=== PATIENT | male | born 1965 | race Caucasian/White ===

== ENCOUNTER 2016-03-04 00:47 | Inpatient (IN) | payer OTHER ==
[2016-03-04] VITALS (8 sets, daily range): BP systolic 125–148; BP diastolic 81–95; PULSE 72–92; TEMP 36.7–37; O2SAT 95–97; Ht 170.2 cm; Wt 89.1 kg
[~2016-03-04] VITALS: Ht 170.2 cm; Wt 89.1 kg
[2016-03-04] MEDS ORDERED: VNTHFA/IN INH (03:02)
[2016-03-04] MEDS ORDERED: ONDANSETRON INJ 2 MG/ML 2 ML VIAL IV PRN (03:15)
[2016-03-04] MEDS ORDERED: ACETAMINOPHEN 325 MG TAB PO PRN (03:15)
[2016-03-04] MEDS ORDERED: NITROGLYCERIN 0.4 MG SL PER TAB CHARGE SL PRN (03:15)
[2016-03-04] MEDS ORDERED: ZOLPIDEM TARTRATE 5 MG TAB PO PRN (03:15)
[2016-03-04] MEDS ORDERED: INFLUENZA VIRUS QUAD VACCINE 0.5 ML SYR IM. ONE (08:00)
[2016-03-04] MEDS ORDERED: INFLUENZA ADMINISTRATION CHARGE ONE (08:00)
[2016-03-04 08:31] LABS: BASO % 0.5 %; BASO ABS # 0.03 K/uL (0-0.2); COMPLETE YES; EOS % 2.4 %; HEMATOCRIT 45.6 % (42-52); IG% 0.3 %; LYMPH % 29.3 %; LYMPH ABS # 1.85 K/uL (1.2-3.4); MEAN CELL VOLUME 89.2 fL (80-100); MEAN CORPUSCULAR HEMOGLOBIN 32.1 pg (25-34); MEAN PLATELET VOLUME 10.1 fL (7.4-10.4); MONO % 10.4 %; NEUT % 57.1 %; PLATELET COUNT 164 K/uL (130-400); RED BLOOD COUNT 5.11 M/uL (4.7-6.1); WHITE BLOOD COUNT 6.32 K/uL (4.8-10.8)
[2016-03-04] MEDS: ACETAMINOPHEN 325 MG TAB PO PRN ×2 (08:44→20:33)
[2016-03-04 08:53] LABS: BUN/CREATININE RATIO 11.9 (10-20); CALCIUM 8.4 mg/dl (8.5-10.1); CREATININE 0.72 mg/dl (0.60-1.40); MAGNESIUM 2.3 mg/dl (1.8-2.4); POTASSIUM 4.2 mmol/L (3.5-5.1)
[2016-03-04 08:56] LABS: ALB/GLOB RATIO 1.4 (0.9-2); PHOSPHORUS 2.8 mg/dl (2.5-4.9)
[2016-03-04] MEDS ORDERED: LORAZEPAM 2 MG/ML 1 ML VIAL IV PRN (09:15)
[2016-03-04] MEDS ORDERED: LORAZEPAM INJ 2 MG in SYRINGE 1 ML IV PRN (09:15)
--- NOTE | 2016-03-04 12:42 | Progress Note ---
Subjective Date of Service: Mar 04, 2016. Subjective Pt evaluation today including: conversation w/ patient Voiding: no voiding problems Review of Systems Constitutional: No chills, No fever Eyes: + worsening of vision Respiratory: No cough, No shortness of breath, No sputum Cardiac: No chest pain, No edema Abdomen: No diarrhea, No pain, No vomiting Male : No dysuria Objective Vital Signs Date Time Temp Pulse Resp B/P Pulse Ox O2 Delivery O2 Flow Rate FiO2 03/04/16 12:00 96 Room Air 03/04/16 11:09 37.0 75 22 144/92 96 Room Air 03/04/16 08:00 95 Room Air 03/04/16 08:00 36.9 92 22 143/89 95 Room Air 03/04/16 04:00 Room Air 03/04/16 02:29 36.7 82 20 125/81 95 Room Air Physical Exam General Appearance: WD/WN, no apparent distress Eyes: normal inspection, PERRL, EOMI ENT: normal ENT inspection, hearing grossly normal Neck: supple Respiratory/Chest: chest non-tender, lungs clear, normal breath sounds, no respiratory distress, no accessory muscle use Cardiovascular: regular rate, rhythm, no edema, no gallop, no JVD, no murmur Abdomen: normal bowel sounds, non tender, soft, no organomegaly, no pulsatile mass Extremities: normal range of motion, non-tender, normal inspection, no pedal edema, no calf tenderness 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, no motor/sensory deficits, alert, normal mood/affect, oriented x 3 Skin: normal color, warm/dry, no rash Laboratory Results Last 24 Hours Test 03/04/16 06:30 03/04/16 08:19 Hepatitis C Antibody Screen NEG White Blood Count 6.32 K/uL Red Blood Count 5.11 M/uL Hemoglobin 16.4 g/dL Hematocrit 45.6 % Mean Corpuscular Volume 89.2 fL Mean Corpuscular Hemoglobin 32.1 pg Mean Corpuscular Hemoglobin Concent 36.0 g/dl Platelet Count 164 K/uL Mean Platelet Volume 10.1 fL Neutrophils (%) (Auto) 57.1 % Lymphocytes (%) (Auto) 29.3 % Monocytes (%) (Auto) 10.4 % Eosinophils (%) (Auto) 2.4 % Basophils (%) (Auto) 0.5 % Neutrophils # (Auto) 3.61 K/uL Lymphocytes # (Auto) 1.85 K/uL Monocytes # (Auto) 0.66 K/uL Eosinophils # (Auto) 0.15 K/uL Basophils # (Auto) 0.03 K/uL RDW Standard Deviation 44.1 fL RDW Coefficient of Variation 13.5 % Immature Granulocyte % (Auto) 0.3 % Immature Granulocyte # (Auto) 0.02 K/uL Sodium Level 138 mmol/L Potassium Level 4.2 mmol/L Chloride Level 101 mmol/L Carbon Dioxide Level 26 mmol/L Anion Gap 11.0 mmol/L Blood Urea Nitrogen 9 mg/dl Creatinine 0.72 mg/dl Est Creatinine Clear Calc Drug Dose 134.3 ml/min Estimated GFR () 127.0 Estimated GFR (Non- 109.5 BUN/Creatinine Ratio 11.9 Random Glucose 106 mg/dl Calcium Level 8.4 mg/dl Phosphorus Level 2.8 mg/dl Magnesium Level 2.3 mg/dl Total Bilirubin 0.4 mg/dl Aspartate Amino Transf (AST/SGOT) 21 U/L Alanine Aminotransferase (ALT/SGPT) 25 U/L Alkaline Phosphatase 60 U/L Total Protein 6.6 gm/dl Albumin 3.8 gm/dl Globulin 2.8 gm/dl Albumin/Globulin Ratio 1.4 Assessment and Plan 50 years old complained of headache, blurring of vision alcohol dependence Headache Awaiting MRI with contrast CT head from OSH reviewed Blurring of vision , resolved Alcohol dependence CIWA protocol ativan prn withdrawal symptoms DVT prophylaxis
[2016-03-04 13:29] LABS: PARTIAL THROMBOPLASTIN RATIO 1.1; PROTHROMBIN TIME (PATIENT) 10.2 SECONDS (9.0-12.0)
--- NOTE | 2016-03-04 15:01 | DIAGNOSTIC IMAGING REPORT ---
MRI OF THE BRAIN WITHOUT AND WITH IV CONTRAST CLINICAL HISTORY: Transient ischemic attack. COMPARISON STUDY: Head CT March 03, 2016. TECHNIQUE: Utilizing a 1.5 Bharati magnet and dedicated coil, multiplanar, multiecho imaging of the brain was performed pre and postcontrast administration. IV administration of 20 mL of Magnevist contrast was uneventful. FINDINGS: This study is mildly compromised by motion artifact. There are no areas of restricted diffusion. No acute intracranial hemorrhage, midline shift or mass effect is present. Ventricular system is unremarkable. The basilar cisterns are patent. Flow-voids for the major intracranial vessels are present. There are no intracranial masses or areas of pathologic enhancement. A few white matter T2 hyperintense foci suggest mild small vessel disease. The left maxillary sinus is opacified. There is widening of the sinus ostium for the left maxillary sinus. There is mild mucosal thickening of the right maxillary sinus. There is mild mucosal thickening of the ethmoid sinuses. IMPRESSION: 1. No acute intracranial findings. 2. No intracranial masses or pathologic enhancement. 3. Study mildly compromised by motion artifact. 4. Mild suspected small vessel disease. 4. Maxillary sinus disease, as described above. Electronically signed by: Moe Carroll M.D. 03/04/2016 2:59 PM Dictated Date/Time: 03/04/2016 2:52 PM
--- NOTE | 2016-03-04 15:01 | DIAGNOSTIC IMAGING REPORT ---
MR ANGIOGRAM OF THE BRAIN CLINICAL HISTORY: Transient ischemic attack. COMPARISON STUDY: MRI of the brain performed concurrently on 03/04/2016. TECHNIQUE: 3-D [id number] MR angiography of the intracranial circulation is performed. 3-D tumble views are created and assessed. IV contrast was not administered for this examination. FINDINGS: The internal carotid arteries at the skull base are widely patent bilaterally, as are the anterior and middle cerebral arteries. The vertebrobasilar system and posterior cerebral arteries are widely patent. The right vertebral artery is dominant. There is no aneurysm, high-grade stenosis, or focal vessel cutoff seen throughout the intracranial circulation. The brain parenchyma is normal as visualized. Left maxillary sinus disease is observed. IMPRESSION: Unremarkable MR angiogram of the brain. Electronically signed by: Pardeep Joseph M.D. 03/04/2016 2:59 PM Dictated Date/Time: 03/04/2016 2:57 PM
--- NOTE | 2016-03-04 15:14 | DIAGNOSTIC IMAGING REPORT ---
NECK MRA HISTORY: Transient ischemic attack TECHNIQUE: [id number] and gadolinium-enhanced MRA of the neck was performed both before and after the intravenous administration of contrast. All measurements were calculated based on NASCET criteria. 20 cc of intravenous Magnevist was administered COMPARISON STUDY: MRI the brain dated 03/04/2016 FINDINGS: The aortic arch and proximal great vessels are widely patent. There is no significant stenosis, occlusion, or dissection identified within the bilateral common carotid, internal carotid, or vertebral arteries. IMPRESSION: No significant stenosis, occlusion, or dissection identified within the carotid or vertebral arteries. Electronically signed by: Rodrigo Lainez M.D. 03/04/2016 3:12 PM Dictated Date/Time: 03/04/2016 3:10 PM
--- NOTE | 2016-03-04 16:15 | History and Physical ---
History & Physical Date & Time of Service: Mar 04, 2016 at 16:02 Chief Complaint: TIA Primary Care Physician: No Doctor, Assigned History of Present Illness Source: patient Her The patient is a 50-year-old male who presented to [facility] emergency department with frontoparietal headache 1 week and intermittent blurry vision in the left thigh over the past 2 days, along with generalized weakness, shortness of breath and a chronic cough. The patient is a current every day smoker, and has a history of asthma, for which he uses an albuterol HFA when necessary. He had a CT of the head without contrast is negative other than for chronic appearing left maxillary sinusitis, an EKG which showed normal sinus rhythm at [address]-T changes, and laboratories which showed a negative urine drug screen, normal CBC with differential except mildly elevated eosinophils, serum ethanol level 199, and normal chemistry profile, and normal troponin. Because of concern of the ED physician regarding the potential for CVA, the patient was accepted in transfer to [facility]. Upon arrival, patient's symptoms were unchanged. Social History Smoking Status: Current Every Day Smoker Smokeless Tobacco Use: No Alcohol Use: none Drug Use: none Occupational Status: employed Multi-Drug Resistant Organisms History of MDRO: No Allergies Coded Allergies: No Known Allergies (Unverified , 09/15/12) Home Medications Scheduled Albuterol Hfa (Ventolin Hfa), 2 PUFFS INH Q6H Miscellaneous Medications None (Patient States No Home Meds) Review of Systems The patient denies chest pain, palpitations, lower extremity swelling, vision change, hearing change, sore throat, fevers, chills, sweats, weight change, fatigue, nausea, vomiting, abdominal pain, pelvic pain, blood in urine or stool , dysuria, urinary frequency or urgency, memory loss, rash, abnormal bruising or bleeding, imbalance, focal weakness, numbness or tingling in arms or legs, arthralgias or myalgias, back or neck pain, night sweats. The review of systems is otherwise negative other than for that already noted above, and at least 10 systems have been reviewed. Physical Exam Vital Signs Date Time Temp Pulse Resp B/P Pulse Ox O2 Delivery O2 Flow Rate FiO2 03/04/16 15:49 36.9 74 20 148/95 97 Room Air 03/04/16 12:00 96 Room Air 03/04/16 11:09 37.0 75 22 144/92 96 Room Air 03/04/16 08:00 95 Room Air 03/04/16 08:00 36.9 92 22 143/89 95 Room Air 03/04/16 04:00 Room Air 03/04/16 02:29 36.7 82 20 125/81 95 Room Air The patient is awake, alert and oriented 3, appears fatigued, normocephalic and atraumatic, lying in bed and in no acute distress. HEENT--PERRL, EOMI, mucous membranes moist, and oropharynx normal. Neck--supple, no JVD or bruits, thyroid normal, trachea midline, no adenopathy. Heart--normal S1 and S2, no extra beats, no murmurs, rubs or gallops. Lungs--wheezes bilaterally with few scattered rhonchi, no respiratory distress , no accessory muscle use. Abdomen--normal bowel sounds and soft, nontender and nondistended, no hernias or masses, no organomegaly. Extremities--no cyanosis, clubbing or edema. There are good distal pulses b/l. Dermatologic--normal skin turgor, normal color, warm and dry, no abnormal lymph nodes, no rash. Neurologic--cranial nerves II through XII grossly intact, motor and sensory examination normal. Rheumatologic--normal range of motion, nontender, muscles and joints. Psychiatric--normal affect. Diagnostics Laboratory Results Results Past 24 Hours Test 03/04/16 06:30 03/04/16 08:19 03/04/16 12:50 Range/Units Hepatitis C Antibody Screen NEG NEG White Blood Count 6.32 4.8-10.8 K/uL Red Blood Count 5.11 4.7-6.1 M/uL Hemoglobin 16.4 14.0-18.0 g/dL Hematocrit 45.6 42-52 % Mean Corpuscular Volume 89.2 80-100 fL Mean Corpuscular Hemoglobin 32.1 25-34 pg Mean Corpuscular Hemoglobin Concent 36.0 32-36 g/dl Platelet Count 164 130-400 K/uL Mean Platelet Volume 10.1 7.4-10.4 fL Neutrophils (%) (Auto) 57.1 % Lymphocytes (%) (Auto) 29.3 % Monocytes (%) (Auto) 10.4 % Eosinophils (%) (Auto) 2.4 % Basophils (%) (Auto) 0.5 % Neutrophils # (Auto) 3.61 1.4-6.5 K/uL Lymphocytes # (Auto) 1.85 1.2-3.4 K/uL Monocytes # (Auto) 0.66 0.11-0.59 K/uL Eosinophils # (Auto) 0.15 0-0.5 K/uL Basophils # (Auto) 0.03 0-0.2 K/uL RDW Standard Deviation 44.1 36.4-46.3 fL RDW Coefficient of Variation 13.5 11.5-14.5 % Immature Granulocyte % (Auto) 0.3 % Immature Granulocyte # (Auto) 0.02 0.00-0.02 K/uL Sodium Level 138 136-145 mmol/L Potassium Level 4.2 3.5-5.1 mmol/L Chloride Level 101 98-107 mmol/L Carbon Dioxide Level 26 21-32 mmol/L Anion Gap 11.0 3-11 mmol/L Blood Urea Nitrogen 9 7-18 mg/dl Creatinine 0.72 0.60-1.40 mg/dl Est Creatinine Clear Calc Drug Dose 134.3 ml/min Estimated GFR () 127.0 Estimated GFR (Non- 109.5 BUN/Creatinine Ratio 11.9 10-20 Random Glucose 106 70-99 mg/dl Calcium Level 8.4 8.5-10.1 mg/dl Phosphorus Level 2.8 2.5-4.9 mg/dl Magnesium Level 2.3 1.8-2.4 mg/dl Total Bilirubin 0.4 0.2-1 mg/dl Aspartate Amino Transf (AST/SGOT) 21 15-37 U/L Alanine Aminotransferase (ALT/SGPT) 25 12-78 U/L Alkaline Phosphatase 60 45-117 U/L Total Protein 6.6 6.4-8.2 gm/dl Albumin 3.8 3.4-5.0 gm/dl Globulin 2.8 2.5-4.0 gm/dl Albumin/Globulin Ratio 1.4 0.9-2 Prothrombin Time 10.2 9.0-12.0 SECONDS Prothromb Time International Ratio 1.0 0.9-1.1 Activated Partial Thromboplast Time 29.8 21.0-31.0 SECONDS Partial Thromboplastin Ratio 1.1 Impression Assessment and Plan TIA, with symptoms of frontoparietal headache, intermittent vision change in left eye, and generalized weakness--the patient has been admitted to the telemetry unit for serial enzymes, cardiac rhythm monitoring, and a 2-D echocardiogram with Dopplers. We'll order an MRI of the brain combo, an MRA of the neck combo, and an MRA of the head without contrast. He'll be started on aspirin 81 mg by mouth daily. Asthma--we'll place him on his usual albuterol HFA inhaler 2 puffs 4 times a day when necessary. Patient reports that his lungs are his baseline is not feel ill. Alcohol intake--patient is mildly dehydrated at this time, he'll be started on normal saline with potassium chloride 20 mEq at 100 mils per hour. We'll repeat laboratories in the a.m. Level of Care Telemetry Advanced Directives Existing Advance Directive: No Existing Living Will: No Existing Power of Electric Needle Specialist: No Resuscitation Status FULL RESUSCITATION VTE Prophylaxis VTE Risk Assessment Done? Y/N: Yes Risk Level: Moderate Given or contraindicated: SCD's Social Service Consult None Apply
[2016-03-04] MEDS: ENOXAPARIN 40 MG/0.4 ML SYR SQ SCH (16:37)
--- NOTE | 2016-03-04 17:11 | ECHOCARDIOGRAM REPORT ---
*NOTICE TO RECEIVING DEMOCRAT AGENCY This information is strictly Confidential and protected under [place] law. [place] law prohibits you from making any further disclosure of this information unless further disclosure is expressly permitted by the written consent of the person to whom it pertains or is authorized by law. A general authorization for the release of medical or other information is not sufficient for this purpose. Hospital accepts no responsibility if the information is made available to any other person, INCLUDING THE PATIENT. Interpretation Summary * Name: BETY MACIEL Study Date: 03/04/2016 08:14 AM BP: 125/81 mmHg * Patient Location: .2T\S\E219\S\1 HR: 82 * : 1965 (M/d/yyyy) Gender: Male Height: 67 in * Age: 50 yrs Ethnicity: CA Weight: 203 lb * Ordering Physician: Kwadwo Raza * Performed By: Monalisa Blake RDCS * * Reason For Study: CEREBRAL ISCHEMIA/ EMBOLUS * BSA: 2.0 m2 * History: CEREBRAL ISCHEMIA/ EMBOLUS * -- Conclusions -- * 1. Normal LV size. Normal LV wall thickness. * 2. Normal LV systolic function. LVEF 55-60 %. No regional wall motion abnormalities. * 3. Normal RV size and function. * 4. No significant valvular pathology. * 5. Normal estimated RA pressure. * 6. Negative saline contrast study for interatrial shunt. No other potential cardioembolic sources identified. * 7. No prior studies for comparison. Procedure Details * A saline contrast injection was performed to assess for cardiac shunting. * The injection was performed through an intravenous line in the left arm. * The attending nurse who injected the saline contrast was FRANCOIS SYED RN. * A total of 20 cc of agitated saline was given. Left Ventricle * The left ventricle is grossly normal size. * There is normal left ventricular wall thickness. * Ejection Fraction = 55-60%. Right Ventricle * The right ventricle is grossly normal size. * The right ventricular systolic function is normal as assessed by tricuspid annular plane systolic excursion (TAPSE) (normal >1.5 cm). Atria * The left atrial size is normal. * Right atrial size is normal. * Injection of contrast documented no interatrial shunt. Mitral Valve * The mitral valve is grossly normal. * There is no mitral valve stenosis. * Significant mitral regurgitation is absent. Tricuspid Valve * The tricuspid valve is not well visualized. * There is no tricuspid stenosis. * No tricuspid regurgitation. Aortic Valve * The aortic valve opens well. * The aortic valve is trileaflet. * No hemodynamically significant valvular aortic stenosis. * There is no significant aortic regurgitation. Pulmonic Valve * The pulmonary valve is inadequately visualized, but the Doppler data is adequate for interpretation. * Pulmonic stenosis is absent. * There is no pulmonic valvular regurgitation. Great Vessels * The aortic root and proximal ascending aorta are normal sized. Pericardium/Pleural * There is no pericardial effusion. Great Vessels * Normal inferior vena cava size and collapsability with sniff indicates a normal right atrial pressure of 3 mmHg MMode 2D Measurements and Calculations IVSd 1.1 cm IVSs 1.9 cm LVIDd 5.1 cm LVIDs 3.7 cm LVPWd 0.97 cm LVPWs 1.3 cm IVS/LVPW 1.1 FS 27.2 % EDV(Teich) 122.0 ml ESV(Teich) 57.7 ml EF(Teich) 52.7 % EDV(cubed) 130.2 ml ESV(cubed) 50.2 ml EF(cubed) 61.5 % % IVS thick 75.0 % % LVPW thick 36.0 % LV mass(C)d 196.7 grams LV mass(C)dI 96.6 grams/m\S\2 LV mass(C)s 238.9 grams LV mass(C)sI 117.4 grams/m\S\2 SV(Teich) 64.4 ml SI(Teich) 31.6 ml/m\S\2 SV(cubed) 80.1 ml SI(cubed) 39.3 ml/m\S\2 Ao root diam 3.7 cm Ao root area 11.0 cm\S\2 LA dimension 3.8 cm LA/Ao 1.0 LVAd ap4 36.6 cm\S\2 LVLd ap4 9.1 cm EDV(MOD-sp4) 122.0 ml EDV(sp4-el) 124.7 ml LVAs ap4 20.8 cm\S\2 LVLs ap4 7.5 cm ESV(MOD-sp4) 51.3 ml ESV(sp4-el) 48.9 ml EF(MOD-sp4) 57.9 % EF(sp4-el) 60.8 % LVAd ap2 35.3 cm\S\2 LVLd ap2 9.6 cm EDV(MOD-sp2) 109.2 ml EDV(sp2-el) 110.4 ml LVAs ap2 21.0 cm\S\2 LVLs ap2 7.5 cm ESV(MOD-sp2) 52.1 ml ESV(sp2-el) 50.1 ml EF(MOD-sp2) 52.3 % EF(sp2-el) 54.6 % LVLd %diff 4.9 % EDV(MOD-bp) 116.8 ml LVLs %diff -0.52 % ESV(MOD-bp) 51.9 ml EF(MOD-bp) 55.6 % SV(MOD-sp4) 70.7 ml SI(MOD-sp4) 34.7 ml/m\S\2 SV(MOD-sp2) 57.1 ml SI(MOD-sp2) 28.1 ml/m\S\2 SV(MOD-bp) 64.9 ml SI(MOD-bp) 31.9 ml/m\S\2 SV(sp4-el) 75.8 ml SI(sp4-el) 37.2 ml/m\S\2 SV(sp2-el) 60.2 ml SI(sp2-el) 29.6 ml/m\S\2 Doppler Measurements and Calculations MV E max yulissa 69.1 cm/sec MV A max yulissa 59.6 cm/sec MV E/A 1.2 MV dec time 0.26 sec Ao V2 max 139.5 cm/sec Ao max PG 7.8 mmHg Ao max PG (full) 5.3 mmHg LV V1 max PG 2.5 mmHg LV V1 max 79.3 cm/sec
[2016-03-05] VITALS (7 sets, daily range): BP systolic 127–147; BP diastolic 86–95; PULSE 50–74; TEMP 36.3–36.6; O2SAT 95–98
[2016-03-05 06:38] LABS: BASO % 0.8 %; BASO ABS # 0.04 K/uL (0-0.2); COMPLETE YES; EOS % 4.2 %; HEMATOCRIT 45.5 % (42-52); IG% 0.4 %; LYMPH % 41.7 %; LYMPH ABS # 2.09 K/uL (1.2-3.4); MEAN CELL VOLUME 88.5 fL (80-100); MEAN CORPUSCULAR HEMOGLOBIN 31.9 pg (25-34); MEAN PLATELET VOLUME 10.2 fL (7.4-10.4); MONO % 13.2 %; NEUT % 39.7 %; PLATELET COUNT 146 K/uL (130-400); RED BLOOD COUNT 5.14 M/uL (4.7-6.1); WHITE BLOOD COUNT 5.01 K/uL (4.8-10.8)
[2016-03-05 06:49] LABS: PARTIAL THROMBOPLASTIN RATIO 1.2; PROTHROMBIN TIME (PATIENT) 10.2 SECONDS (9.0-12.0)
[2016-03-05 07:14] LABS: ALB/GLOB RATIO 1.2 (0.9-2); BUN/CREATININE RATIO 10.5 (10-20); CALCIUM 8.6 mg/dl (8.5-10.1); CREATININE 0.82 mg/dl (0.60-1.40); MAGNESIUM 2.5 mg/dl (1.8-2.4); POTASSIUM 4.2 mmol/L (3.5-5.1)
[2016-03-05] MEDS: ENOXAPARIN 40 MG/0.4 ML SYR SQ SCH (09:10)
[2016-03-05] MEDS: ACETAMINOPHEN 325 MG TAB PO PRN (09:10)
[2016-03-05] MEDS ORDERED: ASPIRIN 325 MG ECTAB PO SCH (11:13)
[2016-03-05] MEDS ORDERED: NURSING VERBAL MED ORDER ONE (11:15)
[2016-03-05] MEDS ORDERED: AMOXICIL/CLAVU 875MG HOME PACK PO STA (14:21)
[2016-03-05] MEDS ORDERED: VNTHFA/IN INH (14:41)
[2016-03-05] MEDS ORDERED: SALI0.6510 (14:41)
[2016-03-05] MEDS ORDERED: AMOX1TAB43 PO (14:41)
--- NOTE | 2016-03-05 14:45 | Discharge Instructions ---
Discharge Instructions Admission Admission Date: Mar 05, 2016 at 03:00 Admission Diagnosis: headache Care Plan - Goal(s): Decrease discomfort Care Plan - Instructions: Activity Recommendations: no limitations Recommended Home Diet: AHA Phase I (2gmNa/LoCho) VTE Core Measure Inpt VTE Proph given/why not?: SCD's Follow Up Follow-Up: follow up with family physician in one week for skin rash follow up with neurologist in 2 weeks if headache did not resolve (as per family physician choice) follow up with semi conductor assembler in 2 weeks if headache did not resolve (as per family physician choice) possible visual acuity changed and you might need new glasses Work Instructions Return To Work: 2 days Lifting Limitations: none [place] Recommendations: Call your doctor if: * Temperature above 101 degrees * Pain not relieved by pain medicine ordered * There is increased drainage or redness from any incision * You have any unanswered questions or concerns. Your Doctors Instructions noted above were prepared by provider Armida Lozoya.
[2016-03-05] MEDS ORDERED: SODIUM CHLORIDE 0.65% NA SOLN 45 ML (OCEAN) SCH (17:00)
--- NOTE | 2016-03-05 18:16 | Discharge Summary ---
Discharge Summary Admission Date: Mar 05, 2016 at 03:00 Discharge Date: Mar 05, 2016 Discharge Disposition: Home Problems/Secondary Diagnoses: 50 years old complained of headache, blurring of vision alcohol dependence Headache, possibly sinusitis related Chronic sinusitis Blurring of vision , resolved Alcohol dependence Psoriatic rash Discharge Exam Review of Systems: Constitutional: No chills, No fever, No sweats Eyes: + worsening of vision ENT: No hearing loss, No unusual epistaxis Respiratory: No cough, No shortness of breath, No sputum, No wheezing Cardiovascular: No chest pain, No orthopnea Abdomen: No diarrhea, No nausea, No pain, No vomiting Musculoskeletal: No joint pain, No muscle pain Genitourinary - Male: No dysuria, No hematuria Neurologic: No memory loss, No numbness/tingling, No paralysis, No weakness Psychiatric: No anhedonism, No depression symptoms Endocrine: No fatigue Integumentary: + rash Hospital Course 50 years old complained of headache, blurring of vision alcohol dependence He was admitted to [facility] Headache improved , he will follow up with neurologist as an out patient, if not resolved after treating the sinusitis MRI/MRA with contrast all reviewed and had no acute event or masses accidentally he was found to have sinusitis, started on nasal spray and Augmentin Blurring of vision , intermittent, he was instructed to see flight deck officer for his Alcohol dependence he was placed on CIWA protocol and ativan prn withdrawal symptoms he said that he does not need ativan and his drinking habit has been over rated , he commited to dring only weekly he was discharged today to follow up with PCP/Neurologist and flight deck officer This includes examination of the patient, discharge planning, medication reconciliation, and communication with other providers. Discharge Instructions Please refer to the electronic Patient Visit Report (Discharge Instructions) for additional information.
== END 2016-03-05 15:28 | disposition home or self-care (01) | DRG 153 ==
LOC: C.2T 02:23 → UNDOADMIN 02:23 → C.2T 03:00 → UNDOADMIN 03-05 03:00 → UNDODISIN 03-05 15:28
PROVIDERS: ADMIT Hospitalist; ATTEND Hospitalist
DX: J32.9 Chronic sinusitis, unspecified (principal); F10.20 Alcohol dependence, uncomplicated; R21 Rash and other nonspecific skin eruption; J45.909 Unspecified asthma, uncomplicated; E86.0 Dehydration; F17.210 Nicotine dependence, cigarettes, uncomplicated